=== PATIENT | male | born 1985 | race Caucasian/White ===

== ENCOUNTER 2024-10-12 19:54 | Emergency (ER) | payer BC, SELFPAY ==
[2024-10-12 20:00] VITALS: BP 146/105
[2024-10-12 20:09] LABS: Glucose - Point of Care 95 mg/dl (70-99)
[2024-10-12 20:17] LABS: % Basophils 0.2 % (0-2); % Eosinophils 0.5 % (0-6); % Immature Granulocytes 0.6 % (0-0.5); % Monocytes 3.5 % (1.7-9.3); % Neutrophils 92.2 % (42.2-75.2); Absolute Eosinophils 0.1 10^3/uL (0-0.7); Absolute Immature Granulocytes 0.1 10^3/uL (0-0.05); Absolute Lymphocytes 0.5 10^3/uL (1.2-3.4); Absolute Monocytes 0.6 10^3/uL (0.1-0.6); Absolute Neutrophils 14.9 10^3/uL (1.4-6.5); Hematocrit 47.6 % (39.0-52.0); Hemoglobin 16.2 g/dL (13.0-18.0); Mean Corpuscular Hgb 30.4 pg (27.0-31.0); Mean Corpuscular Volume 89.3 fL (80.0-94.0); Mean Platelet Volume 9.1 fL (7.4-10.4); Nucleated Red Blood Cells % 0 % (-); Platelet Count 212 10^3/uL (130-400); Red Blood Cell Count 5.33 10^6/uL (4.70-6.10); Red Cell Dist. Width 12.6 % (11.5-14.5); White Blood Cell Count 16.2 10^3/uL (4.8-10.8)
[2024-10-12 20:34] LABS: ALT (SGPT) 38 U/L (0-50); AST (SGOT) 32 U/L (17-59); Albumin 4.9 g/dl (3.5-5.0); Alkaline Phosphatase 71 U/L (38-126); Blood Urea Nitrogen 23 mg/dl (9-20); Calcium 8.9 mg/dl (8.4-10.2); Carbon Dioxide 27 mmol/L (22-30); Chloride 105 mmol/L (98-107); Glucose 108 mg/dl (70-99); Lipase 65 U/L (23-300); Potassium 4.2 mmol/L (3.5-5.1); Sodium 141 mmol/L (135-145); Total Bilirubin 0.7 mg/dl (0.2-1.3); Total Protein 7.7 g/dl (6.3-8.2); eGFR > 60.00
--- NOTE | 2024-10-12 23:15 | ED.GENMED ---
History of Present Illness
General
Chief Complaint: Abdominal Symptoms
Source: patient
Exam Limitations: none
Time Seen by Provider: 10/12/24 22:33
History of Present Illness
History of Present Illness:
This is a 39 year old male that comes in with c/o multiple complaints. States that he was driving home after picking up a pizza and he got nauseated. States that he also felt cold. States that he got home and took his temp and he felt it was 92,
then 95. States that his Significant other took his temp and it was 98.0. States that he went to and he had drank a bottle of water before going. States that there his temp was 97.5 and he vomited. States that he was told to come to the ER.
States that he vomited here again. States that he had chills, chest pain, SOB, abd pain, nausea, vomiting, and dizziness. Denies any diarrhea but states that his stool did have some blood in it yesterday. Denies any headache.
Past History
Past History
ED Past Medical History: Other (ADHD); Negative Asthma, HTN, Hypercholesterolemia or NIDDM
ED Past Surgical History: Other (anal fissure X 3)
Social History
Tobacco: Non-smoker
Alcohol: Occasional
Drug: None
Personal: Single
Living: with family
Employment: Employed
Review of Systems
Review of Systems
All Other Systems: ROS reviewed and negative except as documented in HPI and ROS
Constitutional: Reports chills; Denies fever
EENT: Reports no symptoms
Respiratory: Reports trouble breathing; Denies cough
Cardiac: Reports chest pain
ABD/GI: Reports abdominal pain, nausea, vomiting and bloody stools (Once); Denies diarrhea
: Reports no symptoms
Musculoskeletal: Reports no symptoms
Skin: Reports no symptoms
Neurological: Reports dizzy; Denies headache
Psychiatric: Reports no symptoms
Phy Exam
General Physical Exam
General Presentation: no apparent distress
General age: appears stated age
General Skin: warm and dry
General Habitus: normal
General Mental: alert
General Hydration: appears well hydrated
ENT Exam
ENT Exam: TM's normal, pharynx normal and neck supple
Eye Exam
Eye Exam: EOMI
Cardiovascular Exam
Cardiovascular Exam: regular rate/rhythm, no edema, no murmur and normal peripheral pulses
Pulmonary Exam
Pulmonary Exam: lungs clear, no respiratory distress, no rales, chest non tender, no crackles, no rhonchi, no wheezing and no cough
Gastrointestinal Exam
Gastrointestinal Exam: normal bowel sounds, soft, no organomegaly, no pulsatile mass, non distended and tender (Left sided tenderness with palpation)
Musculoskeletal Exam
Musculoskeletal Exam: full ROM and no edema
Skin Exam
Skin Exam: normal color, warm/dry, no rash and no petechia
Psychiatric Exam
Psychiatric Exam: normal mood/affect
Course
Orders/Labs/Results
Orders:
Orders
10/12/24 20:11
Complete Blood Count/With Diff Urgent
Comprehensive Metabolic Panel Urgent
Lipase Urgent
10/12/24 23:14
CT Abd/pelvis W Iv Cont Urgent
Comment:
Reason For Exam: Blood in his stool. abd pain, vomiting
Urinalysis Reflex To Culture Urgent
Date Specimen was Collected: 10/13/24
Time Specimen was Collected: 00:36
0.9% Sodium Chloride 1000 ml [Nss] 1,000 ml IV BOLUS
CR Chest - 2 Views Urgent
Comment:
Reason For Exam: Chest pain, SOB
10/12/24 23:21
Electrocardiogram (*1) Urgent
Reason for Study: Shortness of Breath
EKG- Treatment ONCE
10/12/24 23:26
COVID-19 Antigen Urgent
Source: Nasal Swab
Influenza A+B Rapid Molecular Urgent
ANNIE Source: Nasal Swab
Specimen Description:
10/12/24 23:29
Troponin I Urgent
Abnormal Lab Results
10/12/24 10/13/24
20:11 00:39
WBC 16.2 H 10^3/uL
(4.8-10.8)
Abs Immat Gran (auto) 0.1 H 10^3/uL
(0-0.05)
Absolute Neuts (auto) 14.9 H 10^3/uL
(1.4-6.5)
Absolute Lymphs (auto) 0.5 L 10^3/uL
(1.2-3.4)
Immature Gran % 0.6 H %
(0-0.5)
Neutrophils % 92.2 H %
(42.2-75.2)
Lymphocytes % 3.0 L %
(20.5-51.1)
BUN 23 H mg/dl
(9-20)
Glucose 108 H mg/dl
(70-99)
Urine Ketones 1+ A
(Negative)
10/12/24 20:11
10/12/24 20:11
Leukocytosis, Dehydration. Glucose nonfasting. Lipase normal 65, Urine negative for infection. Troponin <0.012
Vital Signs
Initial and Last Documented VS:
Initial Vital Signs
Temp Pulse Resp BP Pulse Ox
98.0 F 87 14 146/105 99
10/12/24 20:00 10/12/24 20:00 10/12/24 20:00 10/12/24 20:00 10/12/24 20:00
Last Documented Vital Signs
Temp Pulse Resp BP Pulse Ox
98.0 F 87 14 146/105 99
10/12/24 20:00 10/12/24 20:00 10/12/24 20:00 10/12/24 20:00 10/12/24 20:00
MDM/Problems Addressed
Differential Diagnosis Includes:
Diverticulitis, Colitis, Enteritis
MDM/Problems Addressed:
This is a 39 year old male that comes in with c/o low temperature, chills, chest pain, SOB, abd pain, nausea, vomiting and dizzziness.
Will check labs, urine, give IV fluids. CT abd/pelvis and get chest.
Back into see patient. Explained that his CT shows that there is mild wall thickening of the small bowel and lower abdomen sigmoid colon through the rectum. Suspect enterocolitis. Patient states that he also just had diarrhea. Explained that with hi
White blood cell count elevation and his Blood in the stool. Will treat as a colitis and place patient on An antibiotics. Will also give patient a prescription for Zofran to help with any nausea, vomiting. Patient will be given the name of a GI
specialist. patient to return with any concerns.
Chronic conditions affecting care:
NA
Acute Exacerbation and/or Progression of Chronic Illness:
NA
*Radiology
Radiology exam reviewed: radiology read reviewed (CT- Fluid witin the colon, likely in the stting of the underlying diarrheal state. Mild wall thickening of loops of small bowel within the lower abdomen and sigmoid colon through the rectum, may
represent underlying enterocolitis. No bowel obstruction. NOrmal gallbladder. Incidentals: Bladder wall), all reviewed NAD by ED Provider (CT cont-thickening, oxculated to decompressed state. No obstructive uropathy. Hepatic hypodensities, too small
to characterize. No abdominal aortic Aneurysm. No acute osseous abnormality. NO acute) and other (C cont-abnormality within the visualized lungs. NO acute abnormality within the visualized soft tissues. )
*Pulse Oximetry
Patient hypoxic: no
*[employer] Interpretation
Rate: [employer]- N/A
*Critical Care Note
Total Time (30-74mins, 75-104mins- exclusive of procedures): Not Applicable
ED Attending Note
-
Portions of this chart may have been created with voice recognition software.� Occasional wrong word or��sound alike� substitutions may have occurred due to the inherent limitations of voice recognition software.
Discharge Plan
Departure
Patient Disposition: Home (Routine Discharge)
Date of Disposition: 10/13/24
Time of Disposition: 01:23
Patient with high blood pressure during this ER visit?: Yes
Condition: Good
Covid-19: Not Applicable
Discharge Problem:
Enterocolitis
Instructions: Colitis - Discharge instructions, Abdominal Pain, BLOOD PRESSURE
Prescriptions:
New
amoxicillin-pot clavulanate 875-125 mg tablet
1 tab PO BID Qty: 19 0RF
ondansetron 4 mg tablet,disintegrating
4 mg PO Q8H PRN (Reason: nausea and vomiting) Qty: 10 0RF
No Action
ascorbic acid (vitamin C) [Vitamin C] 500 MG tablet
1,000 mg PO BID Qty: 56 0RF
Rx Instructions:
Take 1,000 mg twice a day for 14 days
albuterol sulfate 1 PUFF HFA aerosol inhaler
2 puff inhalation R Q4HPRN PRN (Reason: shortness of breath) Qty: 1 0RF
zinc sulfate 220 MG capsule
220 mg PO DAILY Qty: 14 0RF
Rx Instructions:
Take 220 mg daily for 14 days
cholecalciferol (vitamin D3) 1,000 UNITS tablet
2,000 units PO DAILY Qty: 28 0RF
Rx Instructions:
Take 2,000 units daily for 14 days
Referrals:
Maureen Costa MD [Active] - Call in 1-3 days for appt
Tom Pittman MD [Family Provider] -
Activity Restrictions/Additional Instructions:
As discussed, your blood work shows that your white blood cell count is elevated and you are a little dehydrated. Your Urine is negative for infection and the Troponin which is specific for the heart is normal. Your CT shows that there is some wall
thickening in the bowel and fluid filled loops. You will most likely have diarrhea. Do to your White blood cell wound and the blood in the stool you will be given an antibiotics. You have been given your first dose here and a prescription has been
sent to your pharmacy along with a prescription for Zofran to help with any nausea/vomiting. IF YOU HAVE INCREASED OR CHANGING ABDOMINAL PAIN, FEVER, OR YOU HAVE ANY OTHER CONCERNS PLEASE RETURN TO THE EMERGENCY ROOM.
Interventions
Interventions:
*Risk Screen - Suicide Last Done: 10/12/24 20:00
*General Assessment Last Done: 10/12/24 20:00
*Neglect/Abuse Screening Last Done: 10/12/24 20:00
ED- Fall Risk Assessment Last Done: 10/12/24 22:21
K[facility]-Akomhq-Lxkdwcoxyg Assessment Last Done: 10/12/24 22:21
Discharge Date and Time
Print Language: BELARUSIAN
[2024-10-12] MEDS: NSS 1000 IV (23:32)
[2024-10-13 00:04] LABS: Troponin I < 0.012 ng/ml
[2024-10-13 00:12] LABS: COVID-19 Antigen Negative (Negative)
[2024-10-13 00:52] LABS: Urine Albumin Negative (Neg - Trace); Urine Bilirubin Negative (Negative); Urine Character Clear (Clear); Urine Color Yellow; Urine Glucose Negative (Negative); Urine Ketone 1+ (Negative); Urine Leukocyte Negative (Negative); Urine Nitrite Negative (Negative); Urine Occult Blood Negative (Negative); Urine Specific Gravity 1.005 (<1.030); Urine Urobilinogen Negative (Neg - 1+); Urine pH 6.5 (5.0-9.0)
[2024-10-13] MEDS: AUGMENTIN 875 MG/125 MG 1 TABLET PO (01:31)
[2024-10-13 01:36] VITALS: BP 142/80
== END 2024-10-13 02:09 | disposition home or self-care (01) ==
LOC: EMR 19:54
PROVIDERS: Clinical Nurse Specialist Family Health; Emergency Medicine; EMERGENCY PHYSICIAN Student in an Organized Health Care Education/Training Program; FAMILY PHYSICIAN Internal Medicine
DX: K52.9 Noninfective gastroenteritis and colitis, unspecified (principal); R42 Dizziness and giddiness; R11.2 Nausea with vomiting, unspecified; R51.9 Headache, unspecified; K92.1 Melena; R07.9 Chest pain, unspecified; R10.9 Unspecified abdominal pain; Z11.52 Encounter for screening for COVID-19; F90.9 Attention-deficit hyperactivity disorder, unspecified type
CPT/HCPCS: 99285; 96360; 71046; 74177; 80053; 81003; 82962; 83690; 84484; 85025; 87502; 87811; 93005; Q9967